=== PATIENT | female | born 1950 | race Caucasian/White ===

== ENCOUNTER 2017-01-15 20:08 | Inpatient (IN) | payer OTHER ==
[2017-01-15 20:22] VITALS: BMI 16.9
[2017-01-15 21:01] LABS: BASOPHIL 0.1 % (0-2.0); MCHC 32.8 g/dl (32.0-36.0); MEAN CELL VOLUME 91.4 fl (80-96); MEAN PLT VOLUME 6.5 fl (7.5-11.1); NEUTROPHILS 82.9 % (42.8-82.8); PLATELET COUNT 204 K/MM3 (134-434); RDW 14.5 % (11.6-15.6); WHITE BLOOD COUNT 15.4 K/mm3 (4.0-10.0)
[2017-01-15] MEDS ORDERED: SODIUM CHLORIDE 0.9% 1000 ML INFUS.BAG IV PRN (21:06)
[2017-01-15 21:26] LABS: ALBUMIN 2.9 g/dl (3.4-5.0); CALCIUM 8.9 mg/dL (8.5-10.1); TOT PROT 6.8 g/dl (6.4-8.2)
[2017-01-15 21:46] LABS: BILIRUBIN,TOTAL 0.4 mg/dL (0.2-1.0)
--- NOTE | 2017-01-15 21:47 | PDOC ---
History of Present Illness - General Chief Complaint: SIRS, Suspected/Possible Stated Complaint: SHAKING/WEAK/ POSS PNEUMONIA/AMS Time Seen by Provider: 01/15/17 20:14 - History of Present Illness Initial Comments: 01/15/17 21:30 CHIEF COMPLAINT: fever, cough HISTORY OF PRESENT ILLNESS: 66 yo F with hx of bipolar personality disorder presents to ED with fever and cough. and son are at bedside. initially reports that he believes she needs "medical clearance and needs to be added admitted to a psychiatric facility" but immediately the son states that "we don't really think this is a psych issue, she just need to feel better." Per son, she has "been fighting pneumonia since October" and recently has been lethargic and has had episodes "of delirium," but are unable to give details regarding delirium. They report that the patient has had decreased appetite and lost approximately 10 lbs in the last week. No recent travel or sick contacts. PAST MEDICAL HISTORY: Denies past medical history FAMILY HISTORY: Denies SOCIAL HISTORY: Lives at home with . Denies tobacco, alcohol, illicit drug use. SURGICAL HISTORY: Denies ALLERGIES: No known drug allergies REVIEW OF SYSTEMS General/Constitutional: Denies fever or chills. Denies weakness, weight change. HEENT: Denies change in vision. Denies ear pain or discharge. Denies sore throat. Cardiovascular: Denies chest pain or shortness of breath. Respiratory: Pneumonia x 2 months. Gastrointestinal: Denies nausea, vomiting, diarrhea or constipation. Denies rectal bleeding. Genitourinary: Denies dysuria, frequency, or change in urination. Musculoskeletal: Denies joint or muscle swelling or pain. Denies neck or back pain. Skin and breasts: Denies rash or easy bruising. Neurologic: Denies headache, vertigo, loss of consciousness, or loss of sensation. Psychiatric: Hx of bipolar personality disorder. PHYSICAL EXAM General Appearance: Well-appearing, appropriately dressed. No apparent distress , no intoxication. HEENT: EOMI, PERRLA, normal ENT inspection, normal voice, TMs normal, pharynx normal. No conjunctival pallor. No photophobia, scleral icterus. Neck: Supple. Trachea midline. No tenderness, rigidity, carotid bruit, stridor , lymphadenopathy, or thyromegaly. Respiratory/Chest: Decreased lung sounds to L middle and lower lobes. No shortness of breath, chest tenderness, respiratory distress, accessory muscle use. No crackles, rales, rhonchi, stridor, wheezing, dullness Cardiovascular: RRR. S1, S2. No JVD, murmur, bradycardia, tachycardia. Vascular Pulses: Dorsalis-Pedis (R): 2+, Dorsalis-Pedis (L): 2+ Gastrointestinal/Abdominal: Normal bowel sounds. Abdomen soft, non-distended. No tenderness or rebound tenderness. No organomegaly, pulsatile mass, guarding , hernia, hepatomegaly, splenomegaly. Musculoskeletal/Extremities: Tremor to R arm. Normal inspection. FROM of all extremities, normal capillary refill. Pelvis Stable. No CVA tenderness. No tenderness to extremities, pedal edema, swelling, erythema or deformity. Integumentary: Appropriate color, dry, warm. No cyanosis, erythema, jaundice or rash Neurologic: recreational resort manager II-XII intact. Fully oriented, alert. Appropriate mood/affect. Motor strength 5/5. No appreciable EOM palsy, facial droop or sensory deficit. 01/15/17 23:16 01/15/17 23:17 Past History - Past Medical History Allergies/Adverse Reactions: Allergies Allergy/AdvReac Type Severity Reaction Status Date / Time No Known Allergies Allergy Verified 01/15/17 20:22 Home Medications: Ambulatory Orders Divalproex [Depakote -] 500 mg PO DAILY 01/26/17 Divalproex [Depakote -] 750 mg PO HS 01/26/17 Ziprasidone [Geodon -] 40 mg PO HS 01/26/17 Albuterol 0.083% Nebulizer Suad [Ventolin 0.083% Nebulizer Soln -] 1 amp NEB Q4H PRN #1 amp 01/29/17 Benztropine Mesylate [Cogentin -] 1 mg PO BID tablet 01/29/17 Megestrol Acetate Oral Susp [Megace Oral Suspension -] 400 mg PO DAILY #30 ml Psychiatric Problems: Yes - Psycho/Social/Smoking Cessation Hx Anxiety: Yes Suicidal Ideation: No Smoking History: Never smoked Have you smoked in the past 12 months: No Information on smoking cessation initiated: No Hx Alcohol Use: No Drug/Substance Use Hx: No Substance Use Type: None *Physical Exam - Vital Signs Last Vital Signs Temp Pulse Resp BP Pulse Ox 101.2 F H 112 H 18 102/77 95 01/15/17 20:18 01/15/17 20:18 01/15/17 20:18 01/15/17 20:18 01/15/17 20:18 ED Treatment Course - LABORATORY CBC & Chemistry Diagram: 01/16/17 08:15 01/16/17 08:15 - ADDITIONAL ORDERS Additional order review: 01/15/17 20:45 RBC 3.80 MCV 91.4 MCHC 32.8 RDW 14.5 MPV 6.5 L Neutrophils % 82.9 H Lymphocytes % 6.9 L Monocytes % 10.1 Eosinophils % 0.0 Basophils % 0.1 Medical Decision Making - Medical Decision Making 01/15/17 23:17 66 yo F with hx of bipolar personality disorder presents to ED with fever and cough. Patient is tachy and febrile, will order full sepsis work up. -CXR, EKG -CBC, CMP, PT/INR, Mg, 01/15/17 23:51 Labs: WBC 15.4 CXR: 7.2 cm mass-like radiopacity left upper lobe, possibly resoliving pneumonia but cannot exclude malignancy. Advise follow-up. No pleural effusions. Normal heart size. Hyperinflation lungs due to emphysema or deep breath. Biapical pleural thickening. Patient meets sepsis criteria with fever, HR 112, and elevated white count. Will admit to inpatient services. Discussed case with hospitalist attending MD Wilkerson, patient admitted to med/surg. *DC/Admit/Observation/Transfer Diagnosis at time of Disposition: Pneumonia - Discharge Dispostion Disposition: HOME Condition at time of disposition: Improved Admit: Yes
[2017-01-15] MEDS ORDERED: ACETAMINOPHEN 1000 MG/100 ML VIAL (NON FORMULARY) IVPB ONE (21:58)
[2017-01-15 21:59] LABS: VENOUS PH 7.51 (7.32-7.42)
[2017-01-15 22:00] LABS: VENOUS BLOOD GAS HCO3 26.8 meq/L (19-25)
[2017-01-15 22:04] LABS: INR 1.24 (0.82-1.09); PROTHROMBIN TIME (PATIENT) 13.7 SEC (9.98-11.88)
[2017-01-15 22:06] LABS: ACTIVATED PTT 29.3 SECONDS (26.9-34.4)
[2017-01-15] MEDS ORDERED: ACETAMINOPHEN INJECTION 100 ML IVPB ONE (22:22)
[2017-01-15 22:31] LABS: TROPONIN I < 0.02 ng/ml (0.00-0.05)
[2017-01-15] MEDS ORDERED: LEVOFLOXACIN 750 MG IVPB 150 ML IVPB ONE (23:55)
[2017-01-16 00:26] LABS: URINE APPEARANCE CLEAR; URINE BILIRUBIN NEGATIVE (NEGATIVE); URINE COLOR YELLOW; URINE GLUCOSE (UA) NEGATIVE (NEGATIVE); URINE KETONE 1+ (NEGATIVE); URINE NITRITE NEGATIVE (NEGATIVE); URINE UROBILINOGEN NEGATIVE E.U./dl (0.2-1.0)
--- NOTE | 2017-01-16 00:30 | PN ---
<Michelle Wilkerson - Last Filed: 01/16/17 00:30> Teaching Attending Note Name of Resident: Chad Macias <Jordan De Luna - Last Filed: 01/16/17 04:11> Teaching Attending Note ATTENDING PHYSICIAN STATEMENT I saw and evaluated the patient. I reviewed the resident's note and discussed the case with the resident. I agree with the resident's findings and plan as documented. SUBJECTIVE: 66 year old female who presented to the emergency department for further evaluation of subjective fever and cough for 2 months. In ED family noted patient has been treating pneumonia as an outpatient since October and has recently been lethargic and has experienced episodes of altered mental status. Patient reported decreased appetite and has lost approximately 10 lbs in the last week. The patient noted that her last mamogland couple years but she does do self exams at home regularly. The patient reported that her tremors are secondary to her home medications. Past Medical History: Bipolar disorder OBJECTIVE: Vital Signs: Last Vital Signs Temp Pulse Resp BP Pulse Ox 101.2 F H 112 H 18 102/77 95 01/15/17 20:18 01/15/17 20:18 01/15/17 20:18 01/15/17 20:18 01/15/17 20:18 GENERAL: Awake, alert, and fully oriented, in no acute distress HEENT: Atraumatic. PERRLA, EOMI. Moist mucosa. No JVD LUNGS: No distress, speaks full sentences, clear to auscultation bilaterally HEART: Regular rate and rhythm, normal S1 and S2, no murmurs, rubs or gallops, peripheral pulses normal and equal bilaterally. BREAST: No tenderness or palpable masses. No nipple discharge. ABDOMEN: Soft, nontender, normoactive bowel sounds. No guarding, no rebound. No masses EXTREMITIES: Normal inspection, Normal range of motion, no edema. No clubbing or cyanosis. NEUROLOGICAL: Cranial nerves II through XII grossly intact. Normal speech, normal gait, no focal sensorimotor deficits SKIN: Warm, Dry, normal turgor, no rashes or lesions noted. Labs: CBCD WBC 15.4 K/mm3 (4.0-10.0) H 01/15/17 20:45 RBC 3.80 M/mm3 (3.60-5.2) 01/15/17 20:45 Hgb 11.4 GM/dL (10.7-15.3) 01/15/17 20:45 Hct 34.8 % (32.4-45.2) 01/15/17 20:45 MCV 91.4 fl (80-96) 01/15/17 20:45 MCHC 32.8 g/dl (32.0-36.0) 01/15/17 20:45 RDW 14.5 % (11.6-15.6) 01/15/17 20:45 Plt Count 204 K/MM3 (134-434) 01/15/17 20:45 MPV 6.5 fl (7.5-11.1) L 01/15/17 20:45 CMP Sodium 137 mmol/L (136-145) 01/15/17 20:45 Potassium 4.1 mmol/L (3.5-5.1) 01/15/17 20:45 Chloride 99 mmol/L (98-107) 01/15/17 20:45 Carbon Dioxide 26 mmol/L (21-32) 01/15/17 20:45 Anion Gap 12 (8-16) 01/15/17 20:45 BUN 14 mg/dL (7-18) 01/15/17 20:45 Creatinine 1.0 mg/dL (0.55-1.02) 01/15/17 20:45 Creat Clearance w eGFR 55.14 (>60) 01/15/17 20:45 Calcium 8.9 mg/dL (8.5-10.1) 01/15/17 20:45 Total Bilirubin 0.4 mg/dL (0.2-1.0) 01/15/17 20:45 AST 13 U/L (15-37) L 01/15/17 20:45 ALT 12 U/L (12-78) 01/15/17 20:45 Alkaline Phosphatase 69 U/L (45-117) 01/15/17 20:45 Total Protein 6.8 g/dl (6.4-8.2) 01/15/17 20:45 Albumin 2.9 g/dl (3.4-5.0) L 01/15/17 20:45 Imaging: Chest x-ray PA and lateral. Discussion: No prior is available for comparison. There is a 6 x 4.8 cm focal opacity in the left midlung. There are mild atelectatic changes in the left lung base. The right lung is clear. Heart is within normal limits in size. Mediastinum and visualized osseous structures appear intact Impression: Round opacity in the left midlung that may represent a round pneumonia. Rule out a mass. CT scan of the chest is recommended for further evaluation. Interpreted, reviewed, and reported by radiologist, Dr. Georgina Robin MD. ASSESSMENT AND PLAN : Sepsis -IVF with NS @ 100ml/hr -Stated on Levaquin 750mg IV daily in ER -UC and BC pending. -tylenol prn fever. -UA shows possible UTI - covered by Levaquin Pneumonia -Continue levaquin 750mg IV daily -supplemental O2 PRN -maintain SpO2 >90% -Albuterol Inh PRN wheezing. -Chest CT pending r/o mass. Bipolar 1 disorder -Divalproex Sodium (Depakote -) 250 mg PO ASDIR -Ziprasidone (Geodon -) 40 mg PO HS DVT prophylaxis -Heparin 5000U SQ BID Admit to impatient. Documentation prepared by Jordan De Luna, acting as territory sales manager medical for Dr. Michelle Wilkerson MD.
[2017-01-16 00:31] LABS: URINE BLOOD 1+ (NEGATIVE); URINE LEUK ESTERASE 1+ (NEGATIVE); URINE PROTEIN 1+ (NEGATIVE)
[2017-01-16 00:32] LABS: URINE HYALINE CAST 2 /lpf; URINE MUCUS RARE; URINE RBC 9 /hpf (0-3); URINE WBC 21 /hpf (3-5)
[2017-01-16] MEDS ORDERED: ALBUTEROL SO4 0.083% IH SOL 2.5 MG/3 ML VIAL.NEB. NEB PRN (01:04)
--- NOTE | 2017-01-16 01:08 | HP ---
CHIEF COMPLAINT: Weakness and cough PCP: Dr. Ramin Judd HISTORY OF PRESENT ILLNESS: 66 yo F with pmhx of bipolar personality disorder presents to ED with fever and productive cough. As per she was initially treated for CAP in October as an outpatient. Symptoms improved but never really resolved. Since then she has had a productive cough and increasing fatigue and lethargy. For the past week she has not been eating and sleeping approx. 18 hrs daily which prompted trip to ER today. Her baseline mental status is confused but recently she has been more confused even not recognizing son. She able to answer questions and is pleasantly confused. Son also mentions she has been complaining of plueritic pain of left chest wall. Denies NICOLE, abd. pain, n/v. ER course was notable for: (1)WBC 15.4, Tmax-101.2, pulse 112+ CAP = Sepsis. (2)CXR -Round opacity in the left midlung that may represent a round pneumonia. Rule out a mass. (3)UA also suspicious for UTI Recent Travel:Denies PAST MEDICAL HISTORY:Bipolar Disorder PAST SURGICAL HISTORY:Tonsilectomy Social History: Smoking:no Alcohol:no Drugs:no Family History: Mother of Breast Ca., Father on aneurysm. Allergies No Known Allergies Allergy (Verified 01/15/17 20:22) HOME MEDICATIONS: Home Medications Medication Instructions Recorded Divalproex [Depakote -] 250 mg PO ASDIR 01/15/17 Ziprasidone [Geodon] 40 mg PO HS 01/15/17 REVIEW OF SYSTEMS CONSTITUTIONAL: (+)fever, chills Absent: , diaphoresis, generalized weakness, malaise, loss of appetite, weight change HEENT: (+) eye discharge Absent: rhinorrhea, nasal congestion, throat pain, throat swelling, difficulty swallowing, mouth swelling, ear pain, eye pain, visual changes CARDIOVASCULAR: Absent: chest pain, syncope, palpitations, irregular heart rate, lightheadedness , peripheral edema RESPIRATORY: (+)cough, shortness of breath, Absent: dyspnea with exertion, orthopnea, wheezing, stridor, hemoptysis GASTROINTESTINAL: Absent: abdominal pain, abdominal distension, nausea, vomiting, diarrhea, constipation, melena, hematochezia GENITOURINARY: Absent: dysuria, frequency, urgency, hesitancy, hematuria, flank pain, genital pain MUSCULOSKELETAL: Absent: myalgia, arthralgia, joint swelling, back pain, neck pain SKIN: Absent: rash, itching, pallor HEMATOLOGIC/IMMUNOLOGIC: Absent: easy bleeding, easy bruising, lymphadenopathy, frequent infections ENDOCRINE: Absent: unexplained weight gain, unexplained weight loss, heat intolerance, cold intolerance NEUROLOGIC: Absent: headache, focal weakness or paresthesias, dizziness, unsteady gait, seizure, mental status changes, bladder or bowel incontinence PSYCHIATRIC: Absent: anxiety, depression, suicidal or homicidal ideation, hallucinations. PHYSICAL EXAMINATION Vital Signs - 24 hr 01/15/17 20:18 Temperature 101.2 F H Pulse Rate 112 H Respiratory 18 Rate Blood Pressure 102/77 O2 Sat by Pulse 95 Oximetry (%) GENERAL: Awake, alert, and in no acute distress. HEAD: Normal with no signs of trauma. EYES: Pupils equal, round and reactive to light, extraocular movements intact, sclera anicteric, green discharge bilaterally. EARS, NOSE, THROAT: Ears normal, nares patent, oropharynx clear without exudates.DRY mucous membranes. NECK: Normal range of motion, supple without lymphadenopathy, JVD, or masses. LUNGS:Diminished breath sounds on Left lobe. No wheezes, and no crackles. No accessory muscle use. HEART: Regular rate and rhythm, normal S1 and S2 without murmur, rub or gallop. ABDOMEN: Soft, nontender, not distended, normoactive bowel sounds, no guarding, no rebound, no masses. No hepatomegaly or splenomegaly. MUSCULOSKELETAL: Normal range of motion at all joints. No bony deformities or tenderness. No CVA tenderness. UPPER EXTREMITIES: 2+ pulses, warm, well-perfused. No cyanosis. No clubbing. No peripheral edema. LOWER EXTREMITIES: 2+ pulses, warm, well-perfused. No calf tenderness. No peripheral edema. NEUROLOGICAL: Cranial nerves II-XII intact. Normal speech. gait not observed PSYCHIATRIC: Cooperative. Good eye contact. Appropriate mood and affect. SKIN: Warm, dry, normal turgor, no rashes or lesions noted. Laboratory Results - last 24 hr 01/15/17 01/15/17 01/15/17 20:45 20:45 21:20 WBC 15.4 H RBC 3.80 Hgb 11.4 Hct 34.8 MCV 91.4 MCHC 32.8 RDW 14.5 Plt Count 204 MPV 6.5 L Neutrophils % 82.9 H Lymphocytes % 6.9 L Monocytes % 10.1 Eosinophils % 0.0 Basophils % 0.1 INR 1.24 H PTT (Actin FS) 29.3 VBG pH POC VBG pCO2 POC VBG pO2 Mixed VBG HCO3 Sodium 137 Potassium 4.1 Chloride 99 Carbon Dioxide 26 Anion Gap 12 BUN 14 Creatinine 1.0 Creat Clearance w eGFR 55.14 Random Glucose 122 H Lactic Acid Calcium 8.9 Total Bilirubin 0.4 AST 13 L ALT 12 Alkaline Phosphatase 69 Creatine Kinase Troponin I Total Protein 6.8 Albumin 2.9 L Urine Color Urine Appearance Urine pH Ur Specific [place] Urine Protein Urine Glucose (UA) Urine Ketones Urine Blood Urine Nitrite Urine Bilirubin Urine Urobilinogen Ur Leukocyte Esterase Urine RBC Urine WBC Ur Epithelial Cells Hyaline Casts Urine Mucus Blood Type Antibody Screen Spec Expiration Date 01/15/17 01/15/17 01/15/17 21:20 21:20 21:20 WBC RBC Hgb Hct MCV MCHC RDW Plt Count MPV Neutrophils % Lymphocytes % Monocytes % Eosinophils % Basophils % INR PTT (Actin FS) VBG pH POC VBG pCO2 POC VBG pO2 Mixed VBG HCO3 Sodium Potassium Chloride Carbon Dioxide Anion Gap BUN Creatinine Creat Clearance w eGFR Random Glucose Lactic Acid 1.091 Calcium Total Bilirubin AST ALT Alkaline Phosphatase Creatine Kinase 51 Troponin I < 0.02 Total Protein Albumin Urine Color Urine Appearance Urine pH Ur Specific [place] Urine Protein Urine Glucose (UA) Urine Ketones Urine Blood Urine Nitrite Urine Bilirubin Urine Urobilinogen Ur Leukocyte Esterase Urine RBC Urine WBC Ur Epithelial Cells Hyaline Casts Urine Mucus Blood Type Cancelled Antibody Screen Cancelled Spec Expiration Date Cancelled 01/15/17 01/15/17 21:30 23:40 WBC RBC Hgb Hct MCV MCHC RDW Plt Count MPV Neutrophils % Lymphocytes % Monocytes % Eosinophils % Basophils % INR PTT (Actin FS) VBG pH 7.51 H POC VBG pCO2 34.0 L POC VBG pO2 65.6 H Mixed VBG HCO3 26.8 H Sodium Potassium Chloride Carbon Dioxide Anion Gap BUN Creatinine Creat Clearance w eGFR Random Glucose Lactic Acid Calcium Total Bilirubin AST ALT Alkaline Phosphatase Creatine Kinase Troponin I Total Protein Albumin Urine Color Yellow Urine Appearance Clear Urine pH 6.0 Ur Specific [place] 1.019 Urine Protein 1+ H Urine Glucose (UA) Negative Urine Ketones 1+ H Urine Blood 1+ H Urine Nitrite Negative Urine Bilirubin Negative Urine Urobilinogen Negative Ur Leukocyte Esterase 1+ H Urine RBC 9 Urine WBC 21 Ur Epithelial Cells Rare Hyaline Casts 2 Urine Mucus Rare Blood Type Antibody Screen Spec Expiration Date ASSESSMENT/PLAN: 66 yo F with pmhx of bipolar personality disorder admitted for sepsis secondary to CAP. Problem List - Problem (1) Sepsis Assessment/Plan: * IVF with NS @ 100ml/hr * Stated on Levaquin 750mg IV daily in ER * UC and BC pending. * tylenol prn fever. * UA shows possible UTI - covered by Levaquin (2) Pneumonia Assessment/Plan: * Continue levaquin 750mg IV daily * supplemental O2 PRN * maintain SpO2 >90% * Albuterol Inh PRN wheezing. * Chest CT pending r/o mass. (3) Bipolar 1 disorder Assessment/Plan: * Divalproex Sodium (Depakote -) 250 mg PO ASDIR * Ziprasidone (Geodon -) 40 mg PO HS (4) DVT prophylaxis Assessment/Plan: * Heparin 5000U SQ BID Visit type - Emergency Visit Emergency Visit: Yes Care time: The patient presented to the Emergency Department on the above date and was hospitalized for further evaluation of their emergent condition. - New Patient This patient is new to me today: Yes Date on this admission: 01/16/17 - Critical Care Critical Care patient: No
[2017-01-16] MEDS ORDERED: DIVALPROEX SODIUM 250 MG TABLET E.C. (FP) PO SCH (01:15)
[2017-01-16] MEDS ORDERED: SODIUM CHLORIDE 1,000 ML IV SCH ×2 (01:15→05:13)
[2017-01-16] MEDS ORDERED: DIVALPROEX SODIUM 125 MG TABLET E.C. (FP) ONE (01:33)
[2017-01-16] MEDS ORDERED: LEVOFLOXACIN 750 MG IVPB 150 ML IVPB ONE (01:34)
[2017-01-16] MEDS ORDERED: SODIUM CHLORIDE 500 ML IV STA (05:13)
[2017-01-16] MEDS ORDERED: SODIUM CHLORIDE 0.9% 500 ML INFUS.BAG IV ONE (07:53)
[2017-01-16 08:49] LABS: BASOPHIL 0.3 % (0-2.0); MCH 30.8 pg (25.7-33.7); MCHC 33.5 g/dl (32.0-36.0); MEAN CELL VOLUME 91.9 fl (80-96); MEAN PLT VOLUME 6.2 fl (7.5-11.1); NEUTROPHILS 66.5 % (42.8-82.8); PLATELET COUNT 108 K/MM3 (134-434); RDW 14.4 % (11.6-15.6); WHITE BLOOD COUNT 10.7 K/mm3 (4.0-10.0)
[2017-01-16 09:21] LABS: ALK PHOS 47 U/L (45-117); ANION GAP 8 (8-16); BILIRUBIN,TOTAL 0.2 mg/dL (0.2-1.0); CALCIUM 7.4 mg/dL (8.5-10.1); CO2 27 mmol/L (21-32); CREATININE 0.6 mg/dL (0.55-1.02); GLUCOSE,RANDOM 81 mg/dL (74-106); SGOT/AST 8 U/L (15-37); SGPT/ALT 7 U/L (12-78); TOT PROT 4.8 g/dl (6.4-8.2)
[2017-01-16] MEDS: HEPARIN NA (PORCINE) 5,000 UNITS/ML 1ML VIAL SQ SCH ×2 (09:24→22:02)
--- NOTE | 2017-01-16 12:35 | HOSP ---
Subjective - Review of Symptoms Subjective: pt states cough has improved. has had 15 pound weight loss for past 2 months. her , who is present at bedside, states its more from frustration from trying to feed herself than due to lack of appetite. she has had tremors for a few months and has an appointment next month to see a specialist. she completed 10 day course in October for PNA but does not recall the name. denies CP, SOB, fever, chills, dysphagia, odynophagia Last Vital Signs Temp Pulse Resp BP Pulse Ox 98.6 F 72 18 94/57 98 01/16/17 05:18 01/16/17 12:16 01/16/17 06:40 01/16/17 06:40 01/16/17 12:16 General NAD Lungs decreased breath sounds R base, no wheezing Extremities +intention tremor 1. CAP- failed outpatient therapy. concern there may be some mass seen on CXR. CT done and awaiting official read. will call , Shekhar [phone] when any emergent issues. robitussin/mucomyst prn. d/c ivf. cont levaquin Physical Examination Vital Signs: Vital Signs Temperature 98.6 F 01/16/17 05:18 Pulse Rate 72 01/16/17 12:16 Respiratory Rate 18 01/16/17 06:40 Blood Pressure 94/57 01/16/17 06:40 O2 Sat by Pulse Oximetry (%) 98 01/16/17 12:16 Labs: CBC, BMP 01/16/17 08:15 01/16/17 08:15
[2017-01-16] MEDS ORDERED: ACETYLCYSTEINE 20% 200MG/ML 30 ML VIAL *FOR ORAL / INH USE ONLY PO PRN (12:36)
[2017-01-16] MEDS ORDERED: ACETYLCYSTEINE 20% 200MG/ML 4 ML VIAL *FOR ORAL / INH USE ONLY PO PRN (12:46)
[2017-01-16] MEDS: LEVOFLOXACIN 250 MG TABLET (FP) PO SCH (13:27)
[2017-01-16] MEDS: guaiFENesin 200 MG/10 ML 10 ML UNIT-DOSE CUPS PO PRN (14:27)
[2017-01-16] MEDS ORDERED: ACETAMINOPHEN 325 MG TABLET (FP) PO PRN (16:47)
--- NOTE | 2017-01-16 21:04 | EKG ---
Test Reason : Blood Pressure : / mmHG Vent. Rate : 081 BPM Atrial Rate : 081 BPM P-R Int : 124 ms QRS Dur : 076 ms QT Int : 358 ms P-R-T Axes : 074 082 038 degrees QTc Int : 415 ms NORMAL SINUS RHYTHM NONSPECIFIC ST ABNORMALITY ABNORMAL ECG NO PREVIOUS ECGS AVAILABLE Confirmed by RCIK SINGH MD ([id number]) on 01/16/2017 9:03:54 PM Referred By: Confirmed By:RICK SINGH MD
[2017-01-16] MEDS ORDERED: PT OWN MED DRAWER 7, Y5N ONE (21:39)
[2017-01-16] MEDS ORDERED: ZIPRASIDONE 40 MG CAPSULE (FP) PO SCH (22:00)
[2017-01-17] MEDS: guaiFENesin 200 MG/10 ML 10 ML UNIT-DOSE CUPS PO PRN (05:51)
[2017-01-17] MEDS: LEVOFLOXACIN 250 MG TABLET (FP) PO SCH (06:36)
[2017-01-17 09:09] LABS: ALLENS TEST POSITIVE; ART PUNCT SITE RIGHT RADIAL; ARTERIAL BLOOD GAS BASE EXCESS 0.7 meq/l (-2-2); ARTERIAL BLOOD GAS HCO3 23.7 meq/L (22-26); ARTERIAL BLOOD GAS pH 7.46 (7.35-7.45)
[2017-01-17 09:10] LABS: LPM/O2% 3L; PT. ON O2? YES; TYPE OF O2 N/C
--- NOTE | 2017-01-17 09:34 | CON.PULM ---
Consult Consult Specialty:: PULMONARY Referred by:: Dr. Muniz Reason for Consultation:: r/o lung mass/PNA - History of Present Illness Chief Complaint: fever History of Present Illness: 66yo female with h/o bipolar disorder who was admitted with fevers and cough. She denies any chest pain or palpitations but per chart, had been complaining of some left sided pleuritic chest pain. Febrile to 101.2 upon presentation. No shortness of breath or wheezing. She had been treated for a pneumonia in October but did not improve to baseline. No chronic fevers, chills or sweats but she does endorse unintentional weight loss although unable to quantify. She is a remote smoker in high school but never a regular smoker. No history of lung cancer in the family. She was a highway maintenance technician. - History Source History Provided By: Patient, Medical Record Limitations to Obtaining History: Poor Historian - Past Medical History Psych: Yes: Bipolar - Alcohol/Substance Use Hx Alcohol Use: No - Smoking History Smoking history: Never smoked Have you smoked in the past 12 months: No Home Medications - Allergies Allergies/Adverse Reactions: Allergies Allergy/AdvReac Type Severity Reaction Status Date / Time No Known Allergies Allergy Verified 01/15/17 20:22 - Home Medications Home Medications: Ambulatory Orders Divalproex [Depakote -] 250 mg PO ASDIR 01/15/17 Ziprasidone [Geodon] 40 mg PO HS 01/15/17 Family Disease History - Family Disease History Family History: Unremarkable Review of Systems - Review of Systems Constitutional: reports: Fever, Unintentional Wgt. Loss. denies: Chills, Night Sweats Eyes: denies: Recent Change in Vision HENT: denies: Nasal Congestion, Throat Pain Neck: denies: Stiffness, Tenderness Cardiovascular: denies: Chest Pain, Edema, Palpitations, Shortness of Breath Respiratory: reports: Cough. denies: Hemoptysis, SOB, Wheezing Gastrointestinal: denies: Abdominal Pain, Nausea, Vomiting Genitourinary: denies: Dysuria, Hematuria Neurological: denies: Dizziness, Headache Endocrine: reports: Unexplained Weight Loss Physical Exam Vital Sings: Vital Signs Temperature 98.6 F 01/17/17 06:31 Pulse Rate 77 01/17/17 06:31 Respiratory Rate 20 01/17/17 06:31 Blood Pressure 105/64 01/17/17 06:31 O2 Sat by Pulse Oximetry (%) 98 01/16/17 21:00 Constitutional: Yes: No Distress, Calm Eyes: Yes: Conjunctiva Clear, EOM Intact HENT: Yes: Atraumatic, Normocephalic Neck: Yes: Supple, Trachea Midline Cardiovascular: Yes: Regular Rate and Rhythm Respiratory: Yes: Regular, Diminished (decreased breath sounds at the bases) ...Clubbing: No Gastrointestinal: Yes: Normal Bowel Sounds, Soft. No: Tenderness Edema: No Neurological: Yes: Alert, Oriented Labs: CBC, BMP 01/16/17 08:15 01/16/17 08:15 ABG Results ABG pH 7.46 (7.35-7.45) H 01/17/17 09:00 ABG pCO2 at Pt Temp 33.3 mmHg (35-45) L 01/17/17 09:00 ABG pO2 at Pt Temp 136.0 mmHg (80-100) H 01/17/17 09:00 ABG HCO3 23.7 meq/L (22-26) 01/17/17 09:00 ABG O2 Sat (Measured) 99.0 % (90-98.9) H 01/17/17 09:00 ABG O2 Content 11.8 % vol (15-22) L 01/17/17 09:00 ABG Base Excess 0.7 meq/l (-2-2) 01/17/17 09:00 Imaging - Results Cat Scan: Report Reviewed, Image Reviewed (AR consolidation vs mass, small left effusion) Problem List - Problems (1) Pneumonia Code(s): J18.9 - PNEUMONIA, UNSPECIFIED ORGANISM Qualifiers: Pneumonia type: due to unspecified organism Laterality: left Lung location: unspecified part of lung Qualified Code(s): J18.9 - Pneumonia, unspecified organism (2) UTI (urinary tract infection) Code(s): N39.0 - URINARY TRACT INFECTION, SITE NOT SPECIFIED (3) Sepsis Code(s): A41.9 - SEPSIS, UNSPECIFIED ORGANISM Qualifiers: Sepsis type: sepsis due to unspecified organism Qualified Code(s): A41.9 - Sepsis, unspecified organism Assessment/Plan Pneumonia UTI Sepsis r/o Lung Mass Bipolar Disorder - clinically presentation consistent with pneumonia and has responded to antibiotic therapy - unable to assess if there is an underlying process at this time - recommend 7 day course of antibiotics, will need repeat CXR or CT chest in 4- 6 weeks to ensure resolution - if mass like density persists, will need biopsy either bronchoscopy vs CT guided needle biopsy pending location of the lesion - can discharge home on oral antibiotics when afebrile and WBC normalizes - DVT prophylaxis - enforced close follow up with pt, card left with her and instructed to make an appointment upon discharge Thank you for this consult Micha Chowdhury MD
[2017-01-17] MEDS: HEPARIN NA (PORCINE) 5,000 UNITS/ML 1ML VIAL SQ SCH (10:10)
--- NOTE | 2017-01-17 16:22 | DS ---
Physical Exam: SUBJECTIVE: Patient seen and examined. continues to have non productive cough worse at night when she lays down to go to bed. states she feels like her breathing has improved. denies CP, SOB,fever, chills, N/V/C/D OBJECTIVE: Vital Signs Period Temp Pulse Resp BP Sys/Brandon Pulse Ox Last 24 Hr 98.6 F-102.2 F 77-162 18-20 86-128/56-67 98-99 PHYSICAL EXAM GENERAL: The patient is awake, alert, and fully oriented, in no acute distress. HEAD: Normal with no signs of trauma. EYES: PERRL, extraocular movements intact, sclera anicteric, conjunctiva clear. ENT: Ears normal, nares patent, oropharynx clear without exudates, moist mucous membranes. NECK: Trachea midline, full range of motion, supple. LUNGS: Breath sounds equal, clear to auscultation bilaterally, no wheezes, no crackles, no accessory muscle use. HEART: Regular rate and rhythm, S1, S2 without murmur, rub or gallop. ABDOMEN: Soft, nontender, nondistended, normoactive bowel sounds, no guarding, no rebound, no hepatosplenomegaly, no masses. EXTREMITIES: 2+ pulses, warm, well-perfused, no edema. NEUROLOGICAL: Cranial nerves II through XII grossly intact. Normal speech, gait not observed. PSYCH: Normal mood, normal affect. SKIN: Warm, dry, normal turgor, no rashes or lesions noted. LABS Laboratory Results - last 24 hr 01/17/17 09:00 Anticoagulation Therapy Y Puncture Site Right radial ABG pH 7.46 H ABG pCO2 at Pt Temp 33.3 L ABG pO2 at Pt Temp 136.0 H ABG HCO3 23.7 ABG O2 Sat (Measured) 99.0 H ABG O2 Content 11.8 L ABG Base Excess 0.7 Jerrell Test Positive O2 Delivery Device N/c Oxygen Flow Rate 3l Vent Mode Y Vent Rate Y Mechanical Rate Y PEEP 0.0 Pressure Support Vent Y HOSPITAL COURSE: Date of Admission:01/16/17 Date of Discharge: 01/17/17 Admitting diagnosis: sepsis due to PNA Pre hospital course 66 yo F with pmhx of bipolar personality disorder presents to ED with fever and productive cough. As per she was initially treated for CAP in October as an outpatient. Symptoms improved but never really resolved. Since then she has had a productive cough and increasing fatigue and lethargy. For the past week she has not been eating and sleeping approx. 18 hrs daily which prompted trip to ER today. Her baseline mental status is confused but recently she has been more confused even not recognizing son. She able to answer questions and is pleasantly confused. Son also mentions she has been complaining of plueritic pain of left chest wall. Denies NICOLE, abd. pain, n/v. Subsequent hospital course admitted to medicine. started on Levaquin and IVF. required supplemental oxygen to maintain spO2 >90%. CT chest done suspicious for mass with posterior consolidation. concern for malignancy. pulmonary consulted. recommended to complete abx course and follow up wtih CT chest in 4-6 weeks to see if mass resolved. if not will need further workup. on day of discharge afebrile for 24H , leukocytosis resolved. saturating 95% on RA. d/c home on levaquin to complete 7 day course ([id number]). an astelin spray for postnasal ggt. Minutes to complete discharge: 45 Discharge Summary Reason For Visit: PNEUMONIA Current Active Problems Bipolar 1 disorder (Acute) DVT prophylaxis (Acute) Pneumonia (Acute) Sepsis (Acute) UTI (urinary tract infection) (Acute) Condition: Improved - Instructions Diet, Activity, Other Instructions: Start antibiotic tomorrow, take until completed even if your symptoms resolve. A nasal spray has also been prescribed for your post-nasal drip. take for 2 weeks Follow up with your primary care doctor in 1 week Follow up with pulmonary in 4-6 weeks. You will require a repeat CT scan of your lungs at that time to evaluate if your pneumonia has resolved. Further management will be determined at that time If you develop high fevers (temp >101) or your symptoms worsen return to the ER. Referrals: Ramin Judd [Primary Care Provider] - Micha Chowdhury MD, MD [Staff Physician] - Disposition: HOME - Home Medications Comprehensive Discharge Medication List: Ambulatory Orders Divalproex [Depakote -] 250 mg PO ASDIR 01/15/17 Ziprasidone [Geodon -] 40 mg PO HS 01/15/17 Acetylcysteine Po/INH 20% [Mucomyst 20 Oral / INH Use Only*] 200 mg PO Q4H PRN # 20 vial 01/17/17 Azelastine HCl [Astepro] 1 - 2 spr NS BID #1 bottle 01/17/17 Levofloxacin [Levaquin -] 750 mg PO DAILY@0700 #5 tablet 01/17/17 This patient is new to me today: No Emergency Visit: Yes ED Registration Date: 01/16/17 Care time: The patient presented to the Emergency Department on the above date and was hospitalized for further evaluation of their emergent condition. Critical Care patient: No - Discharge Referral Referred to [facility] Med P.C.: No
[2017-01-17 16:45] VITALS: BP 136/66; PULSE 68; TEMP 99.7
== END 2017-01-17 18:00 | disposition home or self-care (01) | DRG 871 ==
LOC: JER 20:08 → SUPCPDRO 20:08 → JERBED 01-16 01:02 → UNDOADMIN 01-16 01:04 → J8W 01-16 04:33
PROVIDERS: ADMIT Internal Medicine; ATTEND Internal Medicine
DX: A41.9 Sepsis, unspecified organism (principal); J18.9 Pneumonia, unspecified organism; N39.0 Urinary tract infection, site not specified; F31.9 Bipolar disorder, unspecified
CPT/HCPCS: 36415; 36600; 70450-TC; 71020-TC; 71250-TC; 80053; 81003; 81015; 82550; 82803; 83605; 84484; 85025; 85610; 85730; 87040; 87086; 93005; 93010; 99282-25; J1644